=== PATIENT | male | born 1960 ===

== ENCOUNTER 2018-02-10 07:12 | Inpatient (IN) | payer OTHER ==
[~2018-02-10] VITALS: Ht 182.9 cm; Wt 102.1 kg
[2018-02-10] MEDS ORDERED: AVAPRO300 MG (07:28)
[2018-02-10] MEDS ORDERED: LABETALOL HCL300 MG (07:28)
[2018-02-10] MEDS ORDERED: LABETALOL HCL200 MG (07:28)
== END 2018-02-16 13:16 | disposition home or self-care (01) | DRG 393 ==
LOC: ER 07:12 → SURG 13:12
PROC: BW21ZZZ Computerized Tomography (CT Scan) of Abdomen and Pelvis (ICD-10-PCS; 2018-02-10)
PROC: 0DBH8ZX Excision of Cecum, Via Natural or Artificial Opening Endoscopic, Diagnostic (ICD-10-PCS; principal; 2018-02-14)
PROC: 0DBL8ZX Excision of Transverse Colon, Via Natural or Artificial Opening Endoscopic, Diagnostic (ICD-10-PCS; 2018-02-14)
PROC: 0DBN8ZX Excision of Sigmoid Colon, Via Natural or Artificial Opening Endoscopic, Diagnostic (ICD-10-PCS; 2018-02-14)
PROC: 0DBP8ZX Excision of Rectum, Via Natural or Artificial Opening Endoscopic, Diagnostic (ICD-10-PCS; 2018-02-14)
PROC: 0DBM8ZX Excision of Descending Colon, Via Natural or Artificial Opening Endoscopic, Diagnostic (ICD-10-PCS; 2018-02-14)
DX: D12.0 Benign neoplasm of cecum (principal); D12.4 Benign neoplasm of descending colon; D12.3 Benign neoplasm of transverse colon; D12.5 Benign neoplasm of sigmoid colon; D12.8 Benign neoplasm of rectum; D66 Hereditary factor VIII deficiency; K62.5 Hemorrhage of anus and rectum; D68.62 Lupus anticoagulant syndrome; I10 Essential (primary) hypertension

== ENCOUNTER 2018-02-18 06:51 | Outpatient (CLI) | payer OTHER ==
[~2018-02-18 06:51] MED LIST: AVAPRO300 MG; LABETALOL HCL200 MG; LABETALOL HCL300 MG
== END 2018-02-18 07:02 | disposition home or self-care (01) ==
LOC: LAB 06:51
DX: D68.8 Other specified coagulation defects (principal); D68.61 Antiphospholipid syndrome; D68.62 Lupus anticoagulant syndrome